=== PATIENT | female | born 1960 | race Caucasian/White ===

== ENCOUNTER 2018-07-17 05:58 | Day surgery (SDC) | payer OTHER ==
[~2018-07-17] VITALS: Ht 154.9 cm; Wt 72.1 kg
[2018-07-17] MEDS ORDERED: IBUPROFEN 800 MG TAB PO PRN (08:40)
[2018-07-17] MEDS ORDERED: ONDANSETRON 4 MG/2 ML VIAL IVP PRN ×2 (08:40→10:30)
[2018-07-17] MEDS ORDERED: ACETAMINOPHEN/CODEINE 300/30MG 1 TAB PO PRN (08:40)
[2018-07-17] MEDS ORDERED: MORPHINE SULFATE 4 MG/ML SYR IM/IVP PRN (08:40)
[2018-07-17] MEDS ORDERED: ONDANSETRON 4 MG/2 ML VIAL ONE (10:02)
[2018-07-17] MEDS ORDERED: PROPOFOL 200 MG/20 ML VIAL IV ONE (10:02)
[2018-07-17] MEDS ORDERED: DEXAMETHASONE 4 MG/ML VIAL ONE (10:02)
[2018-07-17] MEDS ORDERED: MIDAZOLAM 2 MG/2 ML VIAL ONE (10:12)
[2018-07-17] MEDS ORDERED: fentaNYL 0.05 MG/ML VIAL ONE (10:12)
[2018-07-17] MEDS ORDERED: MEPERIDINE 25 MG/ML SYR ONE (10:12)
[2018-07-17] MEDS ORDERED: LACTATED RINGERS 1,000 ML IV SCH (10:28)
[2018-07-17] MEDS ORDERED: MEPERIDINE 25 MG/ML SYR IVP PRN (10:30)
[2018-07-17] MEDS ORDERED: HYDROmorphone 1 MG/ML AMP IVP PRN (10:30)
== END 2018-07-17 12:40 | disposition home or self-care (01) ==
LOC: MDS 05:58 → MMU 06:07 → MDS 12:40
PROVIDERS: ATTEND Obstetrics & Gynecology
DX: N95.0 Postmenopausal bleeding (principal); I50.9 Heart failure, unspecified; Z98.51 Tubal ligation status; Z98.890 Other specified postprocedural states
CPT/HCPCS: 58120; 71045; 93005; J1100; J2175; J2250; J2405; J2704; J3010; J7120; Q0092